=== PATIENT | female | born 1985 | race Caucasian/White ===

== ENCOUNTER 2017-11-12 15:38 | Outpatient (CLI) | payer OTHER | END 2017-11-12 15:44 | disposition home or self-care (01) | LOC: LAB 15:38 | DX: N92.1 Excessive and frequent menstruation with irregular cycle (principal) ==

== ENCOUNTER 2017-11-14 08:21 | Outpatient (CLI) | payer OTHER | END 2017-11-14 08:28 | disposition home or self-care (01) | LOC: LAB 08:21 | DX: N92.1 Excessive and frequent menstruation with irregular cycle (principal) ==

== ENCOUNTER 2017-11-16 14:32 | Outpatient (CLI) | payer OTHER | END 2017-11-16 14:38 | disposition home or self-care (01) | LOC: LAB 14:32 | DX: Z34.01 Encounter for supervision of normal first pregnancy, first trimester (principal) ==

== ENCOUNTER 2017-11-19 14:51 | Outpatient (CLI) | payer OTHER | END 2017-11-19 14:52 | disposition home or self-care (01) | LOC: LAB 14:51 | DX: Z34.01 Encounter for supervision of normal first pregnancy, first trimester (principal) ==

== ENCOUNTER 2018-08-09 14:00 | Inpatient (IN) | payer OTHER ==
[~2018-08-09] VITALS: Ht 162.6 cm; Wt 106.6 kg
[2018-08-16] MEDS ORDERED: PRENATAL TABLE1 EAC4 (14:40)
[2018-08-19] MEDS ORDERED: ACETAMINOPHEN500 M1 PO (13:06)
[2018-08-19] MEDS ORDERED: IBUPROFEN800 MG PO (13:06)
[2018-08-19] MEDS ORDERED: MAXFE CAPLET1 EACH PO (13:07)
== END 2018-08-19 13:54 | DRG 806 ==
LOC: LDR 08-16 12:45 → OB/GYN 08-17 19:01
PROVIDERS: ADMIT Obstetrics & Gynecology
PROC: 10E0XZZ Delivery of Products of Conception, External Approach (ICD-10-PCS; principal; 2018-08-16)
PROC: 0HQ9XZZ Repair Perineum Skin, External Approach (ICD-10-PCS; 2018-08-16)
PROC: 4A1HXFZ Monitoring of Products of Conception, Cardiac Rhythm, External Approach (ICD-10-PCS; 2018-08-16)
DX: O70.0 First degree perineal laceration during delivery (principal); O41.03X0 Oligohydramnios, third trimester, not applicable or unspecified; Z37.0 Single live birth; Z3A.38 38 weeks gestation of pregnancy